=== PATIENT | female | born 1995 | race Asian ===

== ENCOUNTER 2019-01-14 22:22 | Inpatient (IN) | payer BC ==
--- NOTE | 2019-01-14 23:45 | NUR ---
DRY HOUSE TENDER NOTED, RECEIVED 23 YO FEMALE ADMITTED FROM [facility] ACCOMPANIED BY 2 LIDAR SCIENTIST VIA [facility], WITH DX PNA, ADMITTING DR YUE BUSH, PATIENT A/O X4 ABLE TO VERBALIZED CONCERNS, ON 2LPM VIA NC, BREATHING EVEN AND UNLABORED NO SOB/ACUTE DISTRESS , ONCE PLACED IN TELE MONITOR ST WITH HR 115, VS UPON ADMISSION, 100%, 96/57, 114, 97.9, 22, 0/10, 97.9, ACCOMPANIED BY SISTER, LEFT AND RIGHT AC IV ACCES 20G, PER REPORT PATIENT RECEIVED ALBUTEROL AND ATROVENT X3 AT [place], 2L BOLUS NS, PREDNISONE 60MG PO, WILL F/U WITH MD FOR ORDERED, BED LOCKED AND IN LOWEST POSITION, CALL LIGHT W/I REACH, WILL CONTINUE TO MONITOR CLOSELY.
[2019-01-15] VITALS (10 sets, daily range): BP systolic 96–113; BP diastolic 57–69
[2019-01-15] MEDS ORDERED: MAGNESIUM HYDROXIDE 30 ML UDC PO PRN (00:30)
[2019-01-15] MEDS ORDERED: Z GUARD REMEDY 2 OZ OINT TP PRN (00:30)
[2019-01-15] MEDS ORDERED: ACETAMINOPHEN 325 MG TABLET PO PRN (00:30)
[2019-01-15] MEDS ORDERED: ONDANSETRON HCL/PF 4 MG/2 ML VIAL IVP PRN (00:30)
[2019-01-15] MEDS ORDERED: HYDROCODONE/APAP 5/325MG 1 EACH TABLET PO PRN (00:30)
[2019-01-15] MEDS ORDERED: MAG HYDROX/AL HYDROX/SIMETH 30 ML UDC PO PRN (00:30)
[2019-01-15] MEDS: IV NS 0.9% 1,000 ML IV PRN ×4 (00:31→21:15)
[2019-01-15 00:35] LABS: EOSINOPHILS % (AUTO) 1.4 % (0.0-6.0); HEMATOCRIT 39 % (33-45); HEMOGLOBIN 13.1 g/dL (11.5-14.8); LYMPHOCYTES # (AUTO) 0.4 /CMM (0.8-4.8); LYMPHOCYTES % (AUTO) 3.1 % (20.0-44.0); MEAN CORPUSCULAR HGB CONC 34 g/dl (31.0-36.0); MEAN CORPUSCULAR VOLUME 93 fL (82-100); MONOCYTES # (AUTO) 0.2 /CMM (0.1-1.30); MONOCYTES % (AUTO) 1.2 % (2.0-12.0); NEUTROPHILS # (AUTO) 12.8 /CMM (1.8-8.9); NEUTROPHILS % (AUTO) 94.3 % (43.0-81.0); PLATELET COUNT (AUTO) 280 /CMM (150-450); RED BLOOD CELL COUNT(AUTO) 4.15 MIL/uL (4.0-5.2); WHITE BLOOD COUNT (AUTO) 13.6 K/uL (4.3-11.0)
[2019-01-15 00:50] LABS: ALBUMIN 2.6 g/dL (3.4-5.0); BILIRUBIN,TOTAL 0.4 mg/dL (0.2-1.0); CALCIUM, SERUM 8.2 mg/dL (8.5-10.1); CREATININE 0.7 mg/dL (0.6-1.3); POTASSIUM 3.8 mmol/L (3.5-5.1); TOTAL PROTEIN, SERUM 7.1 g/dL (6.4-8.2)
[2019-01-15] MEDS ORDERED: AZITHROMYCIN 500 MG VIAL ONE (01:22)
[2019-01-15] MEDS: AZITHROMYCIN 500 MG in IV D5W 250 ML IV SCH (01:28)
[2019-01-15] MEDS: ZOLPIDEM TARTRATE 5 MG TABLET PO PRN (01:41)
[2019-01-15] MEDS ORDERED: CEFTRIAXONE 1GM BAG (ER ONLY) 1 GM/50 ML PIGGYBACK IV SCH (02:00)
[2019-01-15] MEDS ORDERED: CEFTRIAXONE 1 G VIAL ONE (02:16)
--- NOTE | 2019-01-15 06:40 | NUR ---
RN NOTES, PATIENT ASLEEP AT THIS TIME, BUT AROUSES EASILY TO VERBAL STIMULI, AT RA AT THIS TIME, WITH OPTIMAL O2 SAT LEVEL, NO SOB/ACUTE DISTRESS NOTED AT THIS TIME, AND NO SIGNIFICANT CHANGE IN CONDITION THE REST OF THE NIGHT, ON IVF AT 150ML/HR, BOTH RIGHT ND LEFT AC IV ACCESS PATENT AND INTACT, NO S/S OF INFILTRATION NOTED, BED LOCKED AND LOW POSITION, BILATERAL S/R OF BED IN PLACED, CALL LIGHT W/I REACH, WILL ENDORSE CONTINUITY OF CARE TO ONCOMING NURSE.
--- NOTE | 2019-01-15 08:00 | NUR ---
SOFTBALL COACH NOTES RECEIVED PATIENT ON BED , AWAKE ALERT AND ORIENTED X4 , ON N/C 2LPM. WITH A SLIGHT SOB NOTED. SHE IS ON TELE MONITOR SR. HR 87 . IV SITE ON LEFT AC AND RIGHT AC, INTACT AND FLUSHED WELL. ON IV FLUIDS ORDERED. TAKEN TO CHEST XRAY. BED ON LOW POSITION. CALL LIGHT WITHIN REACH. PLAN OF CARE DISCUSS WITH PATIENT. BREATHING TX WILL BE DONE SOON. WILL CONTINUE TO MONITOR
[2019-01-15] MEDS: PANTOPRAZOLE 40 MG TABLET.DR PO SCH (08:50)
[2019-01-15] MEDS ORDERED: ALBU8.5H8 IH (08:59)
[2019-01-15] MEDS ORDERED: TRAZ-182 PO (08:59)
[2019-01-15] MEDS: ALBUTEROL FS 2.5 MG/0.5 ML VIAL.NEB NEB PRN ×4 (09:07→23:39)
[2019-01-15] MEDS: IPRATROPIUM NEB FS 0.5 MG/2.5 ML AMPUL.NEB NEB PRN ×4 (09:07→23:39)
--- NOTE | 2019-01-15 10:50 | NUR ---
director telehealth note DR. ANGEL AT BEDSIDE, REPORTED CHEST XRAY RESULT, ORDERED TO CHANGE TO IV FLUIDS FROM 15O ML/HR TO 100 ML/HR NOW. ORDERED RAPID INFLUENZA SWAB TEST. GUIDO ORDERED FOR COUGH PRN. PATIENT ON BED WITH HOB UP. NOT IN DISTRESS, NO SOB , CALL LIGHT WITHIN REACH. WILL CONTINUE TO MONITOR. Addendum: 01/15/19 at 1351 by ERUM WEN RN FOR RAPID INFLUENZA SPECIMEN DONE ORDERED
--- NOTE | 2019-01-15 12:10 | NUR ---
BAG MAKING MACHINE OPERATOR NOTES DVT PUMP APPLIED TO PATIENT. PATIENT TOLERATED WELL. RESTING COMFORTABLE. WILL CONTINUE TO MONITOR.
[2019-01-15] MEDS: GUAIFENESIN/D-METHORPHAN HB 5 ML UDC PO PRN ×2 (12:42→18:21)
--- NOTE | 2019-01-15 15:00 | NUR ---
HOME THEATRE TECHNICIAN NOTE ASSISTED TO BR, ALL NEEDS ATTENDED NOT IN DISTRESS
--- NOTE | 2019-01-15 16:40 | NUR ---
ENVIRONMENTAL HEALTH MANAGER NOTE C\O SEVERE COUGH, RT AT BEDSIDE, BREATHING TX DONE , WILL MONITOR
--- NOTE | 2019-01-15 18:44 | NUR ---
telecommunications facility examiner note still c\o cough Robitussin po given , all needs attendee family at bedside will cont to monitor , on ivf as ordered
--- NOTE | 2019-01-15 19:00 | NUR ---
CLOSING RN NOTES PATIENT AWAKE , ALERT AND ORIENTED X4 , ON BED , SITTING COMFORTABLE , HOB UP, O COUGHING NOTED AT THIS TIME, SISITER ON BED SIDE. CALL LIGHT WITHIN REACH
--- NOTE | 2019-01-15 20:20 | NUR ---
recieved patient alert and orientated x3 family at the bedside and attentive to her care. no SOB noted when ambulated to the bathroom. lungs clear via auscultation. smiling and talking with her family
[2019-01-16] VITALS (9 sets, daily range): BP systolic 98–126; BP diastolic 59–81
[2019-01-16] MEDS: GUAIFENESIN/D-METHORPHAN HB 5 ML UDC PO PRN ×2 (00:19→12:09)
[2019-01-16] MEDS: AZITHROMYCIN 500 MG in IV D5W 250 ML IV SCH (00:20)
[2019-01-16] MEDS: ZOLPIDEM TARTRATE 5 MG TABLET PO PRN (01:31)
[2019-01-16] MEDS ORDERED: CEFTRIAXONE 1 G in IV D5W 50 ML IV SCH (02:00)
[2019-01-16] MEDS: IPRATROPIUM NEB FS 0.5 MG/2.5 ML AMPUL.NEB NEB PRN ×3 (04:07→11:54)
[2019-01-16] MEDS: ALBUTEROL FS 2.5 MG/0.5 ML VIAL.NEB NEB PRN ×3 (04:07→11:54)
--- NOTE | 2019-01-16 05:31 | NUR ---
RESP Q 4 HOURS REQUESTED. SHE IS COUGHING PRODUCTIVELY WHITE SPUTUM. SLEPT WELL AFTER RECIEVING AMBIEN. CALL LIGHT WITHIN REACH AND BED ALARM ON. FLUID TAKEN AND ENJOYED. AFEBRILE THIS 12 HOURS.
--- NOTE | 2019-01-16 07:05 | NUR ---
COMPUTER LAB PARA PROFESSIONAL NOTES OPENING PATIENT IS A/OX4 SITTING IN THE BED. COMPLAINING OF SOB, RT CALLED FOR BREATHING TREATMENT Q4 H AND PRN. RIGHT AC NS RUNNING AT 100ML/H. PATIENT DENIES ANY PAIN. NOTED PINK COLOR SPUTUM WHEN PATIENT COUGHED. BED AT THE LOWEST POSITION LOCKED . CALL LIGHT WITHIN REACH. PATIENT IS ABLE TO AMBULATE WITH ASSISTANCE.
[2019-01-16 07:18] LABS: BASOPHILS % (AUTO) 0.1 % (0.0-2.0); EOSINOPHILS % (AUTO) 17.9 % (0.0-6.0); HEMATOCRIT 36 % (33-45); LYMPHOCYTES # (AUTO) 1.7 /CMM (0.8-4.8); LYMPHOCYTES % (AUTO) 15.1 % (20.0-44.0); MEAN CORPUSCULAR HGB CONC 34 g/dl (31.0-36.0); MEAN CORPUSCULAR VOLUME 94 fL (82-100); MONOCYTES # (AUTO) 0.5 /CMM (0.1-1.30); MONOCYTES % (AUTO) 4.5 % (2.0-12.0); NEUTROPHILS # (AUTO) 7.2 /CMM (1.8-8.9); NEUTROPHILS % (AUTO) 62.4 % (43.0-81.0); PLATELET COUNT (AUTO) 267 /CMM (150-450); WHITE BLOOD COUNT (AUTO) 11.6 K/uL (4.3-11.0)
[2019-01-16 07:27] LABS: THYROID STIMULATING HORMONE 1.239 uIU/mL (0.358-3.74)
[2019-01-16 07:46] LABS: CALCIUM, SERUM 7.7 mg/dL (8.5-10.1); CREATININE 0.6 mg/dL (0.6-1.3); MAGNESIUM 1.6 mg/dL (1.8-2.4); PHOSPHORUS 3.4 mg/dL (2.5-4.9); POTASSIUM 3.2 mmol/L (3.5-5.1)
[2019-01-16] MEDS: PANTOPRAZOLE 40 MG TABLET.DR PO SCH (07:51)
[2019-01-16] MEDS: IV NS 0.9% 1,000 ML IV PRN (09:57)
[2019-01-16] MEDS: POTASSIUM CHLORIDE 20 MEQ TAB.PRT.SR PO SCH ×2 (10:27→11:25)
[2019-01-16] MEDS: Magnesium 1GM/D5W 100ML PREMIX 100 ML IV SCH ×2 (11:19→12:10)
--- NOTE | 2019-01-16 13:15 | NUR ---
BUTCHER ASSISTANT NOTES PATIENT IS HAVING DRY COUGH AND DIFFICULTY BREATHING . CALLED RT AND BREATHING TREATMENT GIVEN. SHE EXPLAIN THAT SHE GETS THE COUGH WHEN SHE WAKES UP AFTER SLEEP. SHE FELT BETTER NO COUGH AFTER 10 MIN.
[2019-01-16] MEDS ORDERED: GUAIFENESIN/D-METHORPHAN HB 5 ML UDC PO PRN (14:00)
[2019-01-16] MEDS ORDERED: methylPREDNISolone SOD SUCC 125 MG/2ML VIAL IV ONE (14:00)
[2019-01-16] MEDS: BENZONATATE 100 MG CAPSULE PO SCH ×2 (14:42→17:18)
[2019-01-16] MEDS ORDERED: LEVOFLOXACIN 750 MG /D5W 150ML 750 MG in PREMIX 1 EA IV SCH (15:00)
[2019-01-16] MEDS: ALBUTEROL FS 2.5 MG/0.5 ML VIAL.NEB NEB SCH ×3 (16:20→23:31)
[2019-01-16] MEDS: methylPREDNISolone SOD SUCC 40 MG/ML VIAL IV SCH (17:18)
[2019-01-16] MEDS: LACTOBACILLUS RHAMNOSUS GG 1 EACH CAP.SPRINK PO SCH (17:18)
--- NOTE | 2019-01-16 19:30 | NUR ---
LITHOGRAPHIC PHOTOGRAPHER OPENING NOTE RECIEVED PATIENT IN BED. A/O X4. ON OXYGEN 2L/MIN VIA NASAL CANNULA. NO SOB NOTED. DENIES PAIN AT THIS TIME. EXTERNAL TELE MONITOR READS SR. IN NO APPARENT DISTRESS. IV ACCESS IN RAC #20 SL AND LAC #20 SL. BED IS LOW AND LOCKED, HOB ELEVATED 50 DEGREES, SIDE RIALS UP X2. FAMILY AT THE BEDSIDE. CALL LIGHT WITHIN REACH. WILL CONTINUE TO MONITOR.
--- NOTE | 2019-01-16 19:35 | NUR ---
CYBER SYSTEMS ADMINISTRATOR NOTES PATIENT IS A/OX4 AWAKE IN BED. NO LABORED BREATHING NOTED. IV PATENT AND NS 100ML/H RUNNING AT RIGHT AC. ALL NEEDS ATTENDED. PATIENT HAS BREATHING TREATMENT Q4 H ROUTINE. CALL LIGHT WITHIN REACH, BED AT THE LOWEST POSITION AND LOCKED. ENDORSED TO SALES AND SERVICE CHANGE LEADER NURSE FOR NIRMAL.
[2019-01-17] MEDS: ZOLPIDEM TARTRATE 5 MG TABLET PO PRN (00:03)
--- NOTE | 2019-01-17 00:04 | NUR ---
LEAD AUDITOR NOTES ADMINISTERED PRN AMBIEN 5MG PER PATIENTS REQUEST FOR SLEEP. WILL CONTINUE TO MONITOR.
[2019-01-17] MEDS: ALBUTEROL FS 2.5 MG/0.5 ML VIAL.NEB NEB SCH ×3 (03:33→10:58)
[2019-01-17 05:07] VITALS: BP 110/60
[2019-01-17] MEDS: IPRATROPIUM NEB FS 0.5 MG/2.5 ML AMPUL.NEB NEB PRN (06:19)
--- NOTE | 2019-01-17 07:35 | NUR ---
SURFACE SHIP USW SUPERVISOR CLOSING NOTE PATIENT IN BED. A/O X4. ON OXYGEN 2L/MIN VIA NASAL CANNULA. NO SOB. NO C/O PAIN. EXTERNAL TELE MONITOR READS SR. NO DISTRES NOTEDS. IV ACCESS MAINTAINED IN RAC #20 SL AND LAC #20 SL. BED REMAINS LOW AND LOCKED, HOB ELEVATED 50 DEGREES, SIDE RIALS UP X2. CALL LIGHT WITHIN REACH. WILL ENDORSE TO NEXT AHIFT.
[2019-01-17 07:38] LABS: BASOPHILS # (AUTO) 0.1 /CMM (0.0-0.2); BASOPHILS % (AUTO) 0.3 % (0.0-2.0); EOSINOPHILS % (AUTO) 0.3 % (0.0-6.0); HEMATOCRIT 42 % (33-45); LYMPHOCYTES # (AUTO) 1.2 /CMM (0.8-4.8); LYMPHOCYTES % (AUTO) 5.7 % (20.0-44.0); MEAN CORPUSCULAR HGB CONC 33 g/dl (31.0-36.0); MEAN CORPUSCULAR VOLUME 94 fL (82-100); MONOCYTES # (AUTO) 0.8 /CMM (0.1-1.30); MONOCYTES % (AUTO) 3.7 % (2.0-12.0); NEUTROPHILS # (AUTO) 18.9 /CMM (1.8-8.9); PLATELET COUNT (AUTO) 384 /CMM (150-450); RED BLOOD CELL COUNT(AUTO) 4.48 MIL/uL (4.0-5.2)
[2019-01-17] MEDS: PANTOPRAZOLE 40 MG TABLET.DR PO SCH (07:48)
[2019-01-17] MEDS: LACTOBACILLUS RHAMNOSUS GG 1 EACH CAP.SPRINK PO SCH (07:48)
[2019-01-17] MEDS: methylPREDNISolone SOD SUCC 40 MG/ML VIAL IV SCH (07:48)
[2019-01-17 07:57] LABS: CALCIUM, SERUM 9.4 mg/dL (8.5-10.1); CREATININE 0.7 mg/dL (0.6-1.3); MAGNESIUM 2.2 mg/dL (1.8-2.4); POTASSIUM 4.1 mmol/L (3.5-5.1)
[2019-01-17 08:00] VITALS: BP 105/60
[2019-01-17] MEDS: BENZONATATE 100 MG CAPSULE PO SCH (09:30)
[2019-01-17] MEDS ORDERED: PRED50TA PO (11:04)
[2019-01-17] MEDS ORDERED: ALBU8.5H8 IH (11:04)
[2019-01-17] MEDS ORDERED: LEVO500T75 PO (11:04)
[2019-01-17 12:00] VITALS: BP 101/60
--- NOTE | 2019-01-17 12:33 | NUR ---
CONVENTION SERVICES DIRECTOR NOTES PATIENT LEFT SAFELY WITH FAMILY MEMBERS. IV AND WRIST BAND REMOVED. TELE BOX REMOVED.
== END 2019-01-17 12:30 | disposition home or self-care (01) | DRG 194 ==
LOC: TELE1 23:36
PROVIDERS: ATTEND Hospitalist
DX: J15.9 Unspecified bacterial pneumonia (principal); E44.0 Moderate protein-calorie malnutrition; J45.41 Moderate persistent asthma with (acute) exacerbation; J45.909 Unspecified asthma, uncomplicated; Z79.51 Long term (current) use of inhaled steroids; E87.6 Hypokalemia; E83.42 Hypomagnesemia
CPT/HCPCS: 36415; 71046; 80048-TC; 80053-TC; 80061-TC; 83735-TC; 84100-TC; 84443-TC; 84703-TC; 85025-TC; 87081-TC; 94799-TC; A4216; G0378; J0456; J0696; J1956; J2920; J2930; J3475; J7030; J7060

== ENCOUNTER 2019-10-23 12:44 | Emergency (ER) | payer BC ==
[~2019-10-23] VITALS: Ht 154.9 cm; Wt 52.6 kg
[~2019-10-23 12:44] MED LIST: ALBU8.5H8 IH; LEVO500T23 PO; PRED50TA PO; TRAZ-182 PO
--- NOTE | 2019-10-23 13:04 | NUR ---
CAME IN FOR SORETHROAT, BODY ACHES, CHILLS X FEW DAYS, FEVER STARTED YESTERDAY DENIES SOB, O2 SATURATION AT 98%. TO ER BED 8, HOOKED TO MONITOR, CHNAGED TO HOSP GOWN, WARM BLANKET PROVIDED, PATIENT AAO x 4, BREATHING EVEN AND UNLABORED. AWAITING MD DUENAS.
--- NOTE | 2019-10-23 13:57 | NUR ---
STREPTHROAT SWAB AND GARAY VIRUS PCR DONE AND SENT TO LAB
--- NOTE | 2019-10-23 14:03 | NUR ---
URINE SAMPLE COLLECTED AND SENT TO LAB.
[2019-10-23] MEDS ORDERED: ACETAMINOPHEN ES 500 MG TABLET ONE (14:37)
[2019-10-23] MEDS ORDERED: ACETAMINOPHEN 325 MG TABLET PO ONE (15:00)
[2019-10-23] MEDS ORDERED: KETOROLAC TROMETHAMINE INJ 30 MG/ML VIAL IM ONE (15:30)
[2019-10-23] MEDS ORDERED: KETOROLAC TROMETHAMINE 15 MG/ML VIAL ONE (15:32)
[2019-10-23 15:38] VITALS: BP 116/78
--- NOTE | 2019-10-23 15:47 | NUR ---
MEDICATED ORDERED,VERBALIZED UNDERSTANDING OF ACI,D/C TO WR AND TOLD TO WAIT 15 MINUTES AT LEAST SINCE SHE JUST GOT TORADOL
== END 2019-10-23 16:00 | disposition home or self-care (01) ==
LOC: ER 12:44
DX: J06.9 Acute upper respiratory infection, unspecified (principal); J02.9 Acute pharyngitis, unspecified; R50.9 Fever, unspecified; Z20.828 Contact with and (suspected) exposure to other viral communicable diseases; J45.909 Unspecified asthma, uncomplicated; Z91.018 Allergy to other foods; Z98.82 Breast implant status
CPT/HCPCS: 71045; 84703; 87070; 87880; 96372; 99284; C9803; J1885; U0003; 86403-TC

== ENCOUNTER 2020-11-10 01:50 | Emergency (ER) | payer BC ==
[~2020-11-10] VITALS: Ht 154.9 cm; Wt 49.9 kg
--- NOTE | 2020-11-10 02:10 | NUR ---
BIB SELF C/O SOB WHILE AT WORK. ENDORSES HX OF ASTHMA THAT SHE HAS NOT HAD AN INHALER FOR FOR X2 YEARS. ATTEMPTED OTC MUCINEX W NO RELIEF. DENIES COUGH, CONGESTION, OR FEVER. STATES SHE RECIEVCED A RAPID COVID TEST EARLIER TODAY WHICH WAS NEGATIVE. PT BREATHING EVEN AND UNLABORED PULSE OX APPLIED SATTING 97% RA. RT CALLED FOR BREATHING TREATMENT.
[2020-11-10] MEDS ORDERED: predniSONE 20 MG TABLET ONE (02:37)
[2020-11-10] MEDS ORDERED: ALBUTEROL FS 2.5 MG/3 ML VIAL.NEB ONE (02:41)
[2020-11-10] MEDS ORDERED: IPRATROPIUM NEB FS 0.5 MG/2.5 ML AMPUL.NEB ONE (02:41)
--- NOTE | 2020-11-10 02:53 | NUR ---
RT AT BEDSIDE FOR BREATHING TREATMENT
[2020-11-10] MEDS ORDERED: ALBUTEROL FS 2.5 MG/3 ML VIAL.NEB CONTNEB ONE (03:00)
[2020-11-10] MEDS ORDERED: predniSONE 20 MG TABLET PO ONE (03:00)
[2020-11-10] MEDS ORDERED: IPRATROPIUM NEB FS 0.5 MG/2.5 ML AMPUL.NEB NEB ONE (03:00)
--- NOTE | 2020-11-10 03:48 | NUR ---
PT ENDORSES IMPROVEMENT IN SOB. IS CURRENTLY COMPLETING BREATHING TREATMENT SATTING 100%.
[2020-11-10] MEDS ORDERED: ALBU18HF2 INH (04:17)
[2020-11-10] MEDS ORDERED: PRED20TA PO (04:17)
--- NOTE | 2020-11-10 04:44 | NUR ---
Patient discharged to home in stable condition. Written and verbal after care instructions given. Patient verbalizes understanding of instruction. RX given
[2020-11-10 04:45] VITALS: BP 130/80
== END 2020-11-10 04:45 | disposition home or self-care (01) ==
LOC: ER 01:52
DX: J45.901 Unspecified asthma with (acute) exacerbation (principal); Z98.890 Other specified postprocedural states; Z91.010 Allergy to peanuts; Z79.899 Other long term (current) drug therapy
CPT/HCPCS: 71045; 94644; 99285; J7512